=== PATIENT | female | born 1980 ===

== ENCOUNTER 2017-03-02 13:42 | Emergency (ER) | payer MEDICAID ==
[2017-03-02 13:42] VITALS: BMI 28.3
[2017-03-02 13:49] VITALS: PULSE 63; TEMP 98.2; O2SAT 100
--- NOTE | 2017-03-02 13:58 | C.PDOC ---
History Of Present Illness 36 year old female presents to the ED for evaluation of acute exacerbation of chronic right lateral abdominal/right flank pain for the past several days. Patient was evaluated at [facility] for same complaint on 02/28/17. She has a history of right lateral chest pain that has been ongoing for he past 3 months and is pending outpatient PET scan. Patient report that right lateral abdominal wall pain occasionally radiates to right flank/right upper quadrant/right buttock/ posterior right leg. Pain exacerbated by walking and certain positions. Pain associated with intermittent nausea "with pain." Pain not associated with eating. She denies fever, weight loss. She has no surgical history. She notes taking ibuprofen prior to arrival with limited relief. ACUTE EXAC CHRONIC R LAT ABD/FLANK PAIN X SEV DAYS. EVAL @ [facility] FOR SAME 02/28. HO Right lateral chest wall pain ongoing for 3 months PENDING OUTPT PET SCAN. R LAT ABD WALL OCC RADIATION R FLANK/RUQ/R BUTTOCK/POST LEG. WORSE W WALKING, CERTAIN POSITIONS. NO ASSOC W EATING. +ASSOC INTERMIT NAUSEA "W PAIN". NO FEVER , WT LOSS. PSH NEG. 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 LIMITED RELIEF EXAM MOD DIST NONTOXIC LUNGS NEG NO CVAT ABD +RUQ TEND MILD SOFT NO R/G BACK AROM WO DIFF NEURO INTACT SKIN NO RASH REMAINDER NEG Time Seen by Provider: 03/02/17 13:52 Chief Complaint (Nursing): Back Pain History Per: Patient History/Exam Limitations: no limitations Onset/Duration Of Symptoms: Days Current Symptoms Are (Timing): Still Present Reports Recently: Seen In ED Past Medical History Reviewed: Historical Data, Nursing Documentation, Vital Signs Vital Signs: Last Vital Signs Temp 98.2 F 03/02/17 13:47 Pulse 63 03/02/17 16:39 Resp 18 03/02/17 16:39 BP 126/85 03/02/17 16:39 Pulse Ox 100 03/02/17 16:39 - Medical History PMH: Fibromyalgia Denies: Chronic Kidney Disease Surgical History: No Surg Hx - [facility] Procedures APPLICATION OF SPLINT (02/13/05) ARTIF RUPT [facility]BRANES NEC (04/18/98) MANUAL ASSIST DELIV NEC (04/18/98) Family History: States: Unknown Family Hx - Social History Hx Alcohol Use: Yes Hx Substance Use: No - Immunization History Hx Tetanus Toxoid Vaccination: No Review Of Systems Constitutional: Negative for: Fever Cardiovascular: Positive for: Chest Pain (chest wall) Gastrointestinal: Positive for: Nausea, Abdominal Pain Musculoskeletal: Positive for: Back Pain, Leg Pain Physical Exam - Physical Exam Appears: Well, Non-toxic, In Acute Distress (moderate ) Skin: Normal Color, Warm, Dry, No Rash Head: Atraumatic, Normacephalic Neck: Normal, Supple Respiratory: Normal Breath Sounds, No Rales, No Rhonchi, No Wheezing Gastrointestinal/Abdominal: Soft, Tenderness (right upper quadrant mild tenderness ), No Guarding, No Rebound Back: No CVA Tenderness, Other (active range of motion without difficulty ) Neurological/Psych: Oriented x3, Normal Speech, Normal Motor, Normal Sensation ED Course And Treatment - Laboratory Results Result Diagrams: 03/02/17 14:24 03/02/17 14:24 O2 Sat by Pulse Oximetry: 100 Progress - Re-Evaluation Re-evaluation Note: 03/02/17 14:59 FEELS BETTER APPEARS COMFORTABLE. CT, US PENDING 03/02/17 16:26 EXAM UNCH PRIOR. ADVISED FU PMD - Data Reviewed Data Reviewed: Lab, Diagnostic imaging, Old records Disposition Counseled Patient/Family Regarding: Studies Performed, Diagnosis, Need For Followup, Rx Given - Disposition Referrals: YOUR,PMD [Other] Disposition: HOME/ ROUTINE Disposition Time: 16:26 Condition: IMPROVED Prescriptions: Acetaminophen/Codeine [Tylenol/Codeine 300 MG/30 MG] 2 tab PO Q6H #20 tab Naproxen 500 mg PO BID #30 tab Instructions: Back Pain (ED) Forms: [facility] [employer] (Kazakh) - Clinical Impression Clinical Impression: Back pain - Scribe Statement The provider has reviewed the documentation as recorded by the Hira Pennington Provider Attestation: All medical record entries made by the Alfreditoibe were at my direction and personally dictated by me. I have reviewed the chart and agree that the record accurately reflects my personal performance of the history, physical exam, medical decision making, and the department course for this patient. I have also personally directed, reviewed, and agree with the discharge instructions and disposition.
[2017-03-02] MEDS ORDERED: Sodium Chloride 0.9% 1,000 ML IV SCH (14:15)
[2017-03-02 14:28] LABS: BASO # 0.1 K/uL (0.0-0.2); EOS # 0.1 K/uL (0.0-0.7); EOS % 1.7 % (0.0-4.0); HEMATOCRIT 40.8 % (34.0-47.0); LYMPH # 2.3 K/uL (1.0-4.3); LYMPH % 27.1 % (20.0-40.0); MEAN CELL VOLUME 88.7 fL (81.0-99.0); MEAN CORPUSCULAR HGB CONC 33.8 g/dL (33.0-37.0); MEAN PLATELET VOLUME 8.1 fL (7.2-11.7); MONO # 0.7 K/uL (0.0-0.8); MONO % 8.3 % (0.0-10.0); RED CELL DISTRIBUTION WIDTH 12.2 % (11.5-14.5); WHITE BLOOD COUNT 8.4 K/uL (4.8-10.8)
[2017-03-02 14:39] LABS: RBC URINE 6 /hpf (0-3); URINE BACTERIA FEW (<OCC); URINE BILIRUBIN NEGATIVE (NEGATIVE); URINE BLOOD 1+ (NEGATIVE); URINE COLOR Yellow (YELLOW); URINE GLUCOSE (UA) NORMAL (Normal); URINE KETONE NEGATIVE (NEGATIVE); URINE LEUKOCYTE ESTERASE NEG Leu/uL (Negative); URINE PROTEIN NEGATIVE (NEGATIVE); URINE UROBILINOGEN NORMAL mg/dL (0.2-1.0); WBC URINE < 1 /hpf (0-5)
[2017-03-02 14:45] LABS: CHLORIDE 101 mmol/L (98-107)
[2017-03-02 14:46] LABS: POTASSIUM 3.8 mmol/L (3.6-5.2); SODIUM 135 mmol/L (132-148)
[2017-03-02 14:49] LABS: ALB/GLOB RATIO 1.1 (1.0-2.1); ALKALINE PHOSPHATASE 73 U/L (38-126); ALT/SGPT 34 U/L (9-52); AST/SGOT 22 U/L (14-36); BILIRUBIN,TOTAL 0.4 mg/dL (0.2-1.3); BLOOD UREA NITROGEN 11 mg/dL (7-17); CARBON DIOXIDE 26 mmol/L (22-30); GFR AFRICAN-AMERICAN > 60; GLUCOSE,RANDOM 74 mg/dL (65-105); TOTAL PROTEIN 7.8 g/dL (6.3-8.3)
[2017-03-02 14:50] LABS: CALCIUM 9.2 mg/dl (8.6-10.4)
--- NOTE | 2017-03-02 16:04 | US ---
HISTORY: ruq pain COMPARISON: None. TECHNIQUE: Sonographic evaluation of the right upper quadrant of the abdomen. FINDINGS: LIVER: Measures 14.9 cm in length. Mildly increased echogenicity of the liver parenchyma. No mass. No intrahepatic bile duct dilatation. GALLBLADDER: Unremarkable. No gallstones. COMMON BILE DUCT: Measures 4 mm. No stones. No dilatation. PANCREAS: Unremarkable as visualized. No mass. No ductal dilatation. RIGHT KIDNEY: Measures 10.2 x 3.8 x 4.3 cm in length. Normal echogenicity. No calculus, mass, or hydronephrosis. AORTA: No aneurysmal dilatation. IVC: Unremarkable. OTHER FINDINGS: None . IMPRESSION: Mildly echogenic liver likely due to mild steatosis. No evidence of acute pathology in the right upper abdomen.
--- NOTE | 2017-03-02 16:14 | CT ---
PROCEDURE: CT Abdomen and Pelvis without intravenous contrast HISTORY: r flank pain COMPARISON: Comparison is made to the previous study dated 07/08/2012 TECHNIQUE: Axial and reformatted coronal and sagittal CT images of the abdomen and pelvis were obtained without IV or oral contrast administration.. Contrast Dose: 0 Radiation dose: Total exam DLP = 381.5 mGy-cm. This CT exam was performed using one or more of the following dose reduction techniques: Automated exposure control, adjustment of the mA and/or kV according to patient size, and/or use of iterative reconstruction technique. FINDINGS: LOWER THORAX: Again seen are small noncalcified in nodule at the left lung base. LIVER: Unremarkable. No gross lesion or ductal dilatation. GALLBLADDER AND BILE DUCTS: Unremarkable. PANCREAS: Unremarkable. No gross lesion or ductal dilatation. SPLEEN: Unremarkable. ADRENALS: Unremarkable. No mass. KIDNEYS AND URETERS: Unremarkable. No hydronephrosis. No solid mass. VASCULATURE: Unremarkable. No aortic aneurysm. BOWEL: Unremarkable. No obstruction. No gross mural thickening. APPENDIX: Unremarkable. Normal appendix. PERITONEUM: Unremarkable. No free fluid. No free air. LYMPH NODES: Unremarkable. No enlarged lymph nodes. BLADDER: Unremarkable. REPRODUCTIVE: There is a 3 centimeters cyst at the right adnexa and 2.2 centimeters cyst at the left adnexa. BONES: No acute fracture. OTHER FINDINGS: None. IMPRESSION: No evidence of nephrolithiasis or hydronephrosis. Mildly enlarged bilateral adnexa contains 3 centimeter cyst on the right and 2.2 centimeters cyst on the left.
[2017-03-02 16:40] VITALS: BP 126/85; RESP 18
== END 2017-03-02 16:40 | disposition home or self-care (01) ==
LOC: C.ER 13:42
DX: M54.9 Dorsalgia, unspecified (principal)
CPT/HCPCS: 74176; 76705; 80053; 81001; 83690; 85025; 96361; 96374; 96375; 99283; J2270; J2405; J7040